=== PATIENT | female | born 1975 | race Caucasian/White ===

== ENCOUNTER 2022-08-24 22:17 | Emergency (ER) | payer MEDICARE, MEDICAID ==
[2022-08-24] MEDS ORDERED: Pepcid 20 MG VIAL IV ONE ×2 (22:33→22:46)
[2022-08-24] MEDS ORDERED: Sodium Chloride 0.9% 1000 ML 1,000 ML IV STA (22:33)
[2022-08-24] MEDS ORDERED: Sodium Chloride 0.9% 1000 ML 1,000 ML ONE (22:47)
[2022-08-24 22:55] LABS: Absolute Neutrophil Ct (ANC) 5.08 x10^3/uL (1.4-6.9); BASOPHIL % 0.9 % (0.0-0.4); Basophil (Absolute #) 0.08 x10^3/uL (0-0.4); Eosinophil % 2.9 % (0.00-5.0); Eosinophil (Absolute #) 0.26 x10^3/uL (0-0.5); Hematocrit 43.3 % (35-47); Hemoglobin 14.6 g/dL (12.0-16.0); IMMATURE GRAN # 0.02 x10^3u/L (0.00-0.03); IMMATURE GRAN % 0.2 % (0.00-0.4); Lymphocytes % 29.1 % (24.0-44.0); Mean Cell Volume 101.4 fL (78-100); Mean Corpuscular Hemoglobin 34.2 pg (26-32); Mean Corpuscular Hgb Concent. 33.7 g/dL (32-36); Mean Platelet Volume 8.8 fL (7.5-11.0); Monocyte (Absolute #) 0.88 x10^3/uL (0.0-1.3); Monocytes % 9.9 % (0.0-12.0); Platelet Count 393 x10^3/uL (150-450); Red Blood Count 4.27 x10^6/uL (4.1-5.4); Red Cell Distribution Width 12.1 % (11.5-14.0); White Blood Count 8.9 x10^3/uL (4.0-10.5)
[2022-08-24 23:13] LABS: Amphetamine,Urine NEGATIVE (NEGATIVE); Barbiturate,Urine NEGATIVE (NEGATIVE); Benzodiazepine,Urine NEGATIVE (NEGATIVE); Cocaine,Urine NEGATIVE (NEGATIVE); Methadone,Urine NEGATIVE (NEGATIVE); Opiate,Urine NEGATIVE (NEGATIVE); PCP,Urine NEGATIVE (NEGATIVE); THC,Urine NEGATIVE (NEGATIVE)
[2022-08-24 23:37] LABS: ALBUMIN 4.1 g/dL (3.5-5.0); ALKALINE PHOSPHATASE 87 U/L (38-126); ANION GAP 11.3 MEQ/L (5-15); BLOOD UREA NITROGEN 11 mg/dL (7-17); CHLORIDE 105 mmol/L (98-107); CK-Creatinine Phosphokinase 246 U/L (30-135); Calcium 8.4 mg/dL (8.4-10.2); Carbon Dioxide 25 mmol/L (22-30); Creatinine 1 0.58 mg/dL (0.52-1.04); EST GLOMERULAR FILTRATION RATE > 60.0 ML/MIN; ETHYL ALCOHOL < 10 mg/dL (0-10); Glucose 106 mg/dL (74-106); MAGNESIUM 1.9 mg/dL (1.6-2.3); NT PRO BNPII < 20.0 pg/mL (<300); Potassium 3.8 mmol/L (3.5-5.1); SGOT/AST 30 U/L (14-36); SGPT/ALT 22 U/L (0-35); SODIUM 137 mmol/L (137-145); Total Protein 7.4 g/dL (6.3-8.2)
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
[2022-08-25 00:06] VITALS: BP 117/51
[2022-08-25 00:15] VITALS: O2SAT 100
[2022-08-25 00:33] VITALS: PULSE 76
--- NOTE | 2022-08-25 08:39 | XRAY ---
Indication: Chest pain. Comparison: None Portable chest demonstrates normal heart, lungs, and bony thorax.
== END 2022-08-25 00:32 | disposition home or self-care (01) ==
LOC: ED 22:17
DX: F41.9 Anxiety disorder, unspecified (principal); R07.89 Other chest pain; I10 Essential (primary) hypertension; Z79.899 Other long term (current) drug therapy; Z72.0 Tobacco use
CPT/HCPCS: 36000; 36415; 71045; 80053; 80307; 82077; 82550; 83735; 83880; 84484; 85025; 93005; 93041; 94760; 96360; 96374; 99284

== ENCOUNTER 2022-08-28 22:54 | Emergency (ER) | payer MEDICARE, MEDICAID ==
[2022-08-29 00:28] LABS: Appearance Clear (Clear); Bacteria None Seen /HPF (None Seen); Bilirubin Negative (Negative); Blood Negative (Negative); Epithelial Cells None Seen /HPF (None Seen); Glucose, Urine Negative (Negative); Hyaline Casts NONE SEEN /LPF (0-2); Ketones Negative (Negative); Leukocyte Esterase Negative (Negative); Nitrite Negative (Negative); Ph 6.5 (4.6-8.0); Protein,Urine Dip Negative (Negative); Specific Gravity <=1.005 (1.005-1.030); Urobilinogen 0.2 mg/dL (0.2); WBC 0-2 /HPF (0-5)
--- NOTE | 2022-08-29 00:28 | ERPHSYRPT ---
- History of Present Illness Time Seen by Provider: 08/28/22 23:30 Source: patient Exam Limitations: no limitations Patient Subjective Stated Complaint: headache and neck ache, htn, stomach ache, jaw pain, chest has a burning feeling Triage Nursing Assessment: pt ambulated into ER without diff, alert and oriented x4, daughter at bedside. Pt c/o headache and neck pain since noon today and her jaw and teeth also hurt. Pt denies any sob or chest pain. Pt has a history of anxiety and has taken 2 ativan today. Pt has indigestion as well. Lungs clear, heart tones reg. Physician History: This is a 46-year-old white female who is a patient of Dr. Pitts and she recently began medication to treat hypertension. She states that the treatment for her hypertension began approximately 1 week ago and they have had to in crease her dose to 2 tablets of Benicar each day. Today, the patient noticed a headache and some pain in her jaw. She has not had a fever. She denies cough. She has no sabra chest pain or shortness of breath but she does have a burning sensation in the mid central chest without radiation. Patient has a history of gastroesophageal reflux disease and significant anxiety issues. Timing/Duration: today Severity: mild Associated Symptoms: headaches, No nausea, No vomiting, No abdominal pain, No shortness of breath, No chest pain Allergies/Adverse Reactions: hydrocodone [From [place]] Allergy (Mild, Verified 08/28/22 23:22) Sulfa (Sulfonamide Antibiotics) Allergy (Verified 08/28/22 23:22) acetaminophen [From Vicodin] Adverse Reaction (Verified 08/28/22 23:22) alprazolam [From Xanax] Adverse Reaction (Verified 08/28/22 23:22) amoxicillin [Amoxicillin] Adverse Reaction (Verified 08/28/22 23:22) dicyclomine Adverse Reaction (Verified 08/28/22 23:22) hydrocodone bitartrate [From Vicodin] Adverse Reaction (Verified 08/28/22 23:22) naproxen Adverse Reaction (Verified 08/28/22 23:22) tramadol Adverse Reaction (Verified 08/28/22 23:22) Home Medications: Lorazepam 0.5 mg [Ativan 0.5 MG] 0.5 mg PO Q4HPRN PRN 08/14/13 [History] Omeprazole 20 MG [Prilosec 20 mg] 20 mg PO DAILY 08/14/13 [History] Olmesartan Medoxomil [Benicar] 10 mg PO DAILY 08/24/22 [History] Hx Tetanus, Diphtheria Vaccination/Date Given: Yes Hx Influenza Vaccination/Date Given: Yes Hx Pneumococcal Vaccination/Date Given: No Travel Risk - International Travel Have you traveled outside of the country in past 3 weeks: No - Coronavirus Screening Are you exhibiting any of the following symptoms?: No Close contact with a COVID-19 positive Pt in past 14-21 Days: No - Vaccine Status Have you recieved a Covid-19 vaccination: Yes 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 - Review of Systems Constitutional: No Symptoms Eyes: No Symptoms Ears, Nose, & Throat: No Symptoms Respiratory: No Symptoms Cardiac: No Symptoms Abdominal/Gastrointestinal: No Symptoms Genitourinary Symptoms: No Symptoms Musculoskeletal: No Symptoms Skin: No Symptoms Neurological: Headache Psychological: No Symptoms Endocrine: No Symptoms Hematologic/Lymphatic: No Symptoms Immunological/Allergic: No Symptoms All Other Systems: Reviewed and Negative - Past Medical History Pertinent Past Medical History: Yes Neurological History: No Pertinent History ENT History: No Pertinent History Cardiac History: Arrhythmia, Hypertension, Other Respiratory History: Bronchitis, Emphysema Endocrine Medical History: Hypoglycemia Musculoskeletal History: No Pertinent History GI Medical History: Ulcer, Other, GERD History: No Pertinent History Psycho-Social History: Depression, Anxiety Female Reproductive Disorders: Other, Cervical Cancer Other Medical History: H. 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 removal) - Social History Smoking Status: Current every day smoker How long have you smoked: 25 yrs Exposure to second hand smoke: Yes Drug Use: none Patient Lives Alone: Yes Significant Family History: no pertinent family hx - Female History Hx Now: No - Nursing Vital Signs Nursing Vital Signs: Initial Vital Signs Temperature 98.1 F 08/28/22 23:05 Pulse Rate 71 08/28/22 23:05 Respiratory Rate 18 08/28/22 23:05 Blood Pressure 154/90 08/28/22 23:05 O2 Sat by Pulse Oximetry 99 08/28/22 23:05 Pain Scale Pain Intensity 2 - Physical Exam General Appearance: no apparent distress, alert, anxiety Eye Exam: PERRL/EOMI, eyes nml inspection Ears, Nose, Throat Exam: normal ENT inspection, moist mucous membranes Neck Exam: normal inspection, non-tender, supple, full range of motion Respiratory Exam: normal breath sounds, lungs clear, airway intact, No chest tenderness, No respiratory distress Cardiovascular Exam: regular rate/rhythm, normal heart sounds, normal peripheral pulses Gastrointestinal/Abdomen Exam: soft, normal bowel sounds, No tenderness Pelvic Exam: not done Rectal Exam: not done Back Exam: normal inspection, normal range of motion, No CVA tenderness Extremity Exam: normal inspection, normal range of motion, pelvis stable Neurologic Exam: alert, oriented x 3, 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, 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, normal mood/affect, nml cerebellar function, nml station & gait, sensation nml Skin Exam: normal color, warm, dry Lymphatic Exam: No adenopathy SpO2 Interpretation: normal SpO2: 96 O2 Delivery: Room Air - Course Nursing assessment & vital signs reviewed: Yes EKG Interpreted by Me: RATE (69), Sinus Rhythm, NORMAL AXIS, NORMAL INTERVALS, NORMAL QRS, NORMAL ST-T, Other (No acute ischemic changes on today's twelve-lead EKG.) Ordered Tests: Active Orders 24 hr Category Date Time Status Geriatric Physician STAT Care 08/28/22 23:58 Active EKG-ER Only STAT Care 08/28/22 23:57 Active IV Insertion STAT Care 08/28/22 23:59 Active Pulse Oximetry (ED) STAT Care 08/28/22 23:57 Active HEAD WITHOUT CONTRAST [CT] Stat Exams 08/28/22 23:58 Taken TROPONIN Q4H Lab 08/29/22 00:40 Completed TROPONIN Q4H Lab 08/29/22 04:30 Ordered TROPONIN Q4H Lab 08/29/22 08:30 Ordered TROPONIN Q4H Lab 08/29/22 12:30 Ordered TROPONIN Q4H Lab 08/29/22 16:30 Ordered TROPONIN Q4H Lab 08/29/22 20:30 Ordered UA W/RFX UR CULTURE Stat Lab 08/28/22 23:58 Completed Lab/Rad Data: Laboratory Result Diagrams 08/28/22 00:10 08/28/22 00:10 Laboratory Results 08/29/22 08/28/22 08/28/22 Range/Units 00:40 23:58 00:10 WBC (4.0-10.5) x10^3/uL RBC (4.1-5.4) x10^6/uL Hgb (12.0-16.0) g/dL Hct (35-47) % MCV (78-100) fL MCH (26-32) pg MCHC (32-36) g/dL RDW (11.5-14.0) % Plt Count (150-450) x10^3/uL MPV (7.5-11.0) fL Gran % (36.0-66.0) % Immature Gran % (Auto) (0.00-0.4) % Nucleat RBC Rel Count (0.00-0.1) % Eos # (Auto) (0-0.5) x10^3/uL Immature Gran # (Auto) (0.00-0.03) x10^3u/L Absolute Lymphs (auto) (1.0-4.6) x10^3/uL Absolute Monos (auto) (0.0-1.3) x10^3/uL Absolute Nucleated RBC (0.00-0.01) x10^3u/L Lymphocytes % (24.0-44.0) % Monocytes % (0.0-12.0) % Eosinophils % (0.00-5.0) % Basophils % (0.0-0.4) % Absolute Granulocytes (1.4-6.9) x10^3/uL Basophils # (0-0.4) x10^3/uL Sodium 137 (137-145) mmol/L Potassium 3.5 (3.5-5.1) mmol/L Chloride 102 (98-107) mmol/L Carbon Dioxide 28 (22-30) mmol/L Anion Gap 11.0 (5-15) MEQ/L BUN 7 (7-17) mg/dL Creatinine 0.56 (0.52-1.04) mg/dL Estimated GFR > 60.0 ML/MIN Glucose 98 (74-106) mg/dL Calcium 9.0 (8.4-10.2) mg/dL Total Bilirubin 0.40 (0.2-1.3) mg/dL AST 27 (14-36) U/L ALT 22 (0-35) U/L Alkaline Phosphatase 64 (38-126) U/L Troponin I < 0.012 (0.000-0.034) ng/mL Serum Total Protein 7.6 (6.3-8.2) g/dL Albumin 4.2 (3.5-5.0) g/dL Urine Color Yellow (Yellow) Urine Appearance Clear (Clear) Urine pH 6.5 (4.6-8.0) Ur Specific [place] <=1.005 (1.005-1.030) Urine Protein Negative (Negative) Urine Glucose (UA) Negative (Negative) mg/dL Urine Ketones Negative (Negative) Urine Blood Negative (Negative) Urine Nitrite Negative (Negative) Urine Bilirubin Negative (Negative) Urine Urobilinogen 0.2 (0.2) mg/dL Ur Leukocyte Esterase Negative (Negative) U Hyaline Cast (Auto) NONE SEEN (0-2) /LPF Urine Microscopic RBC 3-5 (0-5) /HPF Urine Microscopic WBC 0-2 (0-5) /HPF Ur Epithelial Cells None Seen (None Seen) /HPF Urine Bacteria None Seen (None Seen) /HPF Urine Culture Reflexed NO (NO) 08/28/22 Range/Units 00:10 WBC 10.5 (4.0-10.5) x10^3/uL RBC 4.19 (4.1-5.4) x10^6/uL Hgb 14.2 (12.0-16.0) g/dL Hct 42.3 (35-47) % MCV 101.0 H (78-100) fL MCH 33.9 H (26-32) pg MCHC 33.6 (32-36) g/dL RDW 11.7 (11.5-14.0) % Plt Count 363 (150-450) x10^3/uL MPV 8.6 (7.5-11.0) fL Gran % 52.5 (36.0-66.0) % Immature Gran % (Auto) 0.3 (0.00-0.4) % Nucleat RBC Rel Count 0.0 (0.00-0.1) % Eos # (Auto) 0.33 (0-0.5) x10^3/uL Immature Gran # (Auto) 0.03 (0.00-0.03) x10^3u/L Absolute Lymphs (auto) 3.84 (1.0-4.6) x10^3/uL Absolute Monos (auto) 0.70 (0.0-1.3) x10^3/uL Absolute Nucleated RBC 0.00 (0.00-0.01) x10^3u/L Lymphocytes % 36.7 (24.0-44.0) % Monocytes % 6.7 (0.0-12.0) % Eosinophils % 3.2 (0.00-5.0) % Basophils % 0.6 (0.0-0.4) % Absolute Granulocytes 5.49 (1.4-6.9) x10^3/uL Basophils # 0.06 (0-0.4) x10^3/uL Sodium (137-145) mmol/L Potassium (3.5-5.1) mmol/L Chloride (98-107) mmol/L Carbon Dioxide (22-30) mmol/L Anion Gap (5-15) MEQ/L BUN (7-17) mg/dL Creatinine (0.52-1.04) mg/dL Estimated GFR ML/MIN Glucose (74-106) mg/dL Calcium (8.4-10.2) mg/dL Total Bilirubin (0.2-1.3) mg/dL AST (14-36) U/L ALT (0-35) U/L Alkaline Phosphatase (38-126) U/L Troponin I (0.000-0.034) ng/mL Serum Total Protein (6.3-8.2) g/dL Albumin (3.5-5.0) g/dL Urine Color (Yellow) Urine Appearance (Clear) Urine pH (4.6-8.0) Ur Specific [place] (1.005-1.030) Urine Protein (Negative) Urine Glucose (UA) (Negative) mg/dL Urine Ketones (Negative) Urine Blood (Negative) Urine Nitrite (Negative) Urine Bilirubin (Negative) Urine Urobilinogen (0.2) mg/dL Ur Leukocyte Esterase (Negative) U Hyaline Cast (Auto) (0-2) /LPF Urine Microscopic RBC (0-5) /HPF Urine Microscopic WBC (0-5) /HPF Ur Epithelial Cells (None Seen) /HPF Urine Bacteria (None Seen) /HPF Urine Culture Reflexed (NO) - Progress Progress: improved, re-examined Progress Note: 08/29/22 01:24 This patient's medical issue is 1 of moderate complexity. Level of complexity and the work-up performed is based on review of the patient's past medical history, review of the patient's medication list, review of the patient's drug allergy list, history of present illness and physical findings on examination. The work-up in this patient includes a CT scan of the head without contrast, twelve-lead EKG, urinalysis, troponin level, CBC and CMP levels. I reviewed the results of the work-up. There are no acute, emergent findings on the laboratory data. The CT scan of the head without contrast results are pending. We will review the radiologist impression once this study returns. If this study is normal, we will discharge the patient to home with instructions to continue the medication as prescribed and to call her primary care provider later this morning on 08/29/2022. 08/29/22 01:46 CT scan of the head without contrast is unremarkable there is no acute intracranial abnormality. Counseled pt/family regarding: lab results, diagnosis, need for follow-up, rad results Medical Desision Making - Diagnostic Testing Diagnostic test were ordered, analyzed, and reviewed by me: Yes Radiological Interpretation: Reviewed by me, Teleradiologist Report - Risk of complications Low Risk: Low risk of morbidity from additional dx testing or treatment - Departure Departure Disposition: Home Clinical Impression: Hypertension, Headache Condition: Stable Critical Care Time: No Referrals: CLEOPATRA KING MD [Primary Care Provider] - Follow up/PCP as directed Additional Instructions: Continue medication as prescribed. Call your prescribing provider later this morning, 08/29/2022 to make arrangements for a follow-up appointment and further instruction/management.
[2022-08-29 00:51] LABS: ADD URINE CULTURE? NO (NO)
[2022-08-29 00:51] LABS: Absolute Neutrophil Ct (ANC) 5.49 x10^3/uL (1.4-6.9); BASOPHIL % 0.6 % (0.0-0.4); Basophil (Absolute #) 0.06 x10^3/uL (0-0.4); Eosinophil % 3.2 % (0.00-5.0); Eosinophil (Absolute #) 0.33 x10^3/uL (0-0.5); Hematocrit 42.3 % (35-47); Hemoglobin 14.2 g/dL (12.0-16.0); IMMATURE GRAN # 0.03 x10^3u/L (0.00-0.03); IMMATURE GRAN % 0.3 % (0.00-0.4); Lymphocyte (Absolute #) 3.84 x10^3/uL (1.0-4.6); Lymphocytes % 36.7 % (24.0-44.0); Mean Corpuscular Hemoglobin 33.9 pg (26-32); Mean Corpuscular Hgb Concent. 33.6 g/dL (32-36); Mean Platelet Volume 8.6 fL (7.5-11.0); Monocytes % 6.7 % (0.0-12.0); Neutrophil % 52.5 % (36.0-66.0); Platelet Count 363 x10^3/uL (150-450); Red Blood Count 4.19 x10^6/uL (4.1-5.4); Red Cell Distribution Width 11.7 % (11.5-14.0); White Blood Count 10.5 x10^3/uL (4.0-10.5)
[2022-08-29 01:06] LABS: ALBUMIN 4.2 g/dL (3.5-5.0); ALKALINE PHOSPHATASE 64 U/L (38-126); BLOOD UREA NITROGEN 7 mg/dL (7-17); CHLORIDE 102 mmol/L (98-107); Carbon Dioxide 28 mmol/L (22-30); Creatinine 1 0.56 mg/dL (0.52-1.04); EST GLOMERULAR FILTRATION RATE > 60.0 ML/MIN; Glucose 98 mg/dL (74-106); Potassium 3.5 mmol/L (3.5-5.1); SGOT/AST 27 U/L (14-36); SGPT/ALT 22 U/L (0-35); SODIUM 137 mmol/L (137-145); Total Protein 7.6 g/dL (6.3-8.2)
[2022-08-29 01:56] VITALS: BP 120/80; PULSE 65; O2SAT 97
--- NOTE | 2022-08-29 08:33 | XRAY ---
CLINICAL HISTORY:Hypertension; headache; COMPARISON:01/26/2015; TECHNIQUES:Axial non-contrast CT scan of the brain was performed from the skull base to the high parietal region; FINDINGS: The visualized brain parenchyma shows terry-white matter differentiation. No midline shift. No intracerebral or extra axial hematoma. Normal size and configuration of the cerebral ventricles. Normal CT appearance of the posterior fossa structures. The osseous structures in the skull base are unremarkable. No definite calvarium fractures. Scanned paranasal sinuses and mastoid air cells are clear. IMPRESSION: Unremarkable non-enhanced CT study for the brain. No interval changes compared to prior study. Electronically Signed by: Sammi Veliz MD. 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
== END 2022-08-29 01:57 | disposition home or self-care (01) ==
LOC: ED 22:54
DX: I10 Essential (primary) hypertension (principal); R51.9 Headache, unspecified; R07.9 Chest pain, unspecified; Z79.899 Other long term (current) drug therapy; Z72.0 Tobacco use
CPT/HCPCS: 36000; 36415; 70450; 80053; 81001; 84484; 85025; 93005; 93041; 94760; 99284

== ENCOUNTER 2025-01-19 15:43 | Emergency (ER) | payer MEDICARE ==
[2025-01-19 16:59] VITALS: RESP 18; TEMP 97.2
--- NOTE | 2025-01-19 17:13 | ERPHSYRPT ---
- History of Present Illness Time Seen by Provider: 01/19/25 16:52 Source: patient Exam Limitations: no limitations Patient Subjective Stated Complaint: Pt states "I had a sacral injection 01/15/2025 and now I have a lump in my lower back that was not there and my legs are heavy and my head hurts and I contacted the Dr. that did the injection and they said to contact my family Dr and Dr. Pitts wanted me to come to the er to get an x ray and labs to make sure I do not have an infection." Triage Nursing Assessment: Pt presented alert and oriented X 3, skin pwd. Pt ambulates with a cane, pt able to stand on her own and move. Pt in no apparent distress at this time. Physician History: 49 year-old female presents to the emergency room patient reports she had sacral injections patient was recommended that she come to the emergency room to evaluate for an infection patient reports she is having pain at the injection site denies any pus or drainage denies any redness denies any fevers or chills patient is now in ED for further eval patient reports he is on Lyrica for pain control Timing/Duration: today Method of Injury: other (injection site) Quality: aching Back Pain Location: lumbar spine, coccyx Severity of Pain-Max: mild Severity of Pain-Current: mild Modifying Factors: Improves With: nothing Associated Symptoms: muscle spasms, No fever, No chills, No sweating, No nausea, No light-headedness, No dizziness Allergies/Adverse Reactions: hydrocodone [From [place]] Allergy (Mild, Verified 08/28/22 23:22) Sulfa (Sulfonamide Antibiotics) Allergy (Verified 08/28/22 23:22) acetaminophen [From Vicodin] Adverse Reaction (Verified 08/28/22 23:22) alprazolam [From Xanax] Adverse Reaction (Verified 08/28/22 23:22) amoxicillin [Amoxicillin] Adverse Reaction (Verified 08/28/22 23:22) dicyclomine Adverse Reaction (Verified 08/28/22 23:22) hydrocodone bitartrate [From Vicodin] Adverse Reaction (Verified 08/28/22 23:22) naproxen Adverse Reaction (Verified 08/28/22 23:22) tramadol Adverse Reaction (Verified 08/28/22 23:22) Home Medications: Lorazepam 0.5 mg [Ativan 0.5 MG] 0.5 mg PO Q4HPRN PRN 08/14/13 [History] Omeprazole 20 MG [Prilosec 20 mg] 20 mg PO DAILY 08/14/13 [History] Olmesartan Medoxomil [Benicar] 10 mg PO DAILY 08/24/22 [History] LORazepam [Ativan] 0.5 mg PO DAILY 01/19/25 [History] Pregabalin 25 mg [Lyrica 25 MG] 25 mg PO DAILY 01/19/25 [History] Ubrogepant [Ubrelvy] 100 mg PO DAILY 01/19/25 [History] Hx Tetanus, Diphtheria Vaccination/Date Given: Yes Hx Influenza Vaccination/Date Given: Yes Hx Pneumococcal Vaccination/Date Given: No Immunizations Up to Date: No Travel Risk - International Travel Have you traveled outside of the country in past 3 weeks: No - Emerging Infectious Disease Are you exhibiting symptoms associated with any current EIDs: No - Review of Systems Constitutional: No Fever, No Chills Eyes: No Symptoms Ears, Nose, & Throat: No Symptoms Respiratory: No Cough, No Dyspnea Cardiac: No Chest Pain, No Edema, No Syncope Abdominal/Gastrointestinal: No Abdominal Pain, No Nausea, No Vomiting, No Diarrhea Genitourinary Symptoms: No Dysuria Musculoskeletal: Back Pain, No Neck Pain Skin: No Rash Neurological: No Dizziness, No Focal Weakness, No Sensory Changes Psychological: No Symptoms Endocrine: No Symptoms All Other Systems: Reviewed and Negative - Past Medical History Pertinent Past Medical History: Yes Neurological History: No Pertinent History ENT History: No Pertinent History Cardiac History: Arrhythmia, Hypertension, Other Respiratory History: Bronchitis, Emphysema Endocrine Medical History: Hypoglycemia Musculoskeletal History: No Pertinent History GI Medical History: Ulcer, Other, GERD History: No Pertinent History Psycho-Social History: Anxiety, Depression, Other Female Reproductive Disorders: Other, Cervical Cancer Other Medical History: H. PYLORI - OVARIAN CYSTS, SVT, chairi malformation. PTSD. bulging disc. psiatic right side - Past Surgical History Past Surgical History: Yes Neuro Surgical History: No Pertinent History Cardiac: No Pertinent History Respiratory: No Pertinent History Gastrointestinal: No Pertinent History Genitourinary: No Pertinent History Musculoskeletal: No Pertinent History Female Surgical History: Hysterectomy, Other Other Surgical History: LEEP, endometrial ablation, dysplasia in breast with a wire (tissue removal) Significant Family History: no pertinent family hx - Female History Hx Last Menstrual Period: HYST Hx Now: No - Social History Smoking Status: Current every day smoker How long have you smoked: 25 yrs Exposure to second hand smoke: Yes Drug Use: none - Social Determinants of Health Will the patient participate in the screening: Declined to provide - Nursing Vital Signs Nursing Vital Signs: Initial Vital Signs Temperature 97.2 F 01/19/25 16:52 Pulse Rate 67 01/19/25 16:52 Respiratory Rate 18 01/19/25 16:52 Blood Pressure 117/71 01/19/25 16:52 O2 Sat by Pulse Oximetry 99 01/19/25 16:52 Pain Scale Pain Intensity [Lower Back] 8 Pain Intensity 0 - Physical Exam General Appearance: no apparent distress, alert Eye Exam: PERRL/EOMI, eyes nml inspection Neck Exam: normal inspection, non-tender, supple, full range of motion, No meningismus, No midline tenderness Respiratory Exam: normal breath sounds, lungs clear, No respiratory distress Cardiovascular Exam: regular rate/rhythm, normal heart sounds Gastrointestinal Exam: soft, No tenderness, No mass Back Exam: muscle spasm Extremity Exam: normal inspection, normal range of motion, No calf tenderness, No pedal edema Neurologic Exam: alert, oriented x 3, 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, 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, normal mood/affect, nml station & gait, sensation nml, No motor deficits Skin Exam: normal color, warm, dry, No rash SpO2: 99 Ordered Tests: Active Orders 24 hr Category Date Time Status LUMBAR SPINE W/O [CT] Stat Exams 01/19/25 17:09 Taken THORACIC SPINE W/O CONTRAST [CT] Stat Exams 01/19/25 17:09 Taken CBC W DIFF Stat Lab 01/19/25 17:55 Completed CMP Stat Lab 01/19/25 17:55 Completed Medication Summary Discontinued Medications Generic Name Dose Route Start Last Admin Trade Name Armando PRN Reason Stop Dose Admin Azithromycin 500 mg 01/19/25 18:55 Azithromycin 250 Mg Tablet PO 01/19/25 18:56 STAT ONE Cyclobenzaprine HCl 10 mg 01/19/25 17:09 01/19/25 17:40 Cyclobenzaprine Hcl 10 Mg Tablet PO 01/19/25 17:10 10 mg STAT ONE Administration Cyclobenzaprine HCl Confirm 01/19/25 17:23 Cyclobenzaprine Hcl 10 Mg Tablet Administered 01/19/25 17:24 Dose 10 mg .ROUTE .STK-MED ONE Lidocaine 1 patch 01/19/25 17:09 01/19/25 17:40 Lidocaine Hcl 1 Patch Patch TOP 01/19/25 17:10 1 patch ONCE ONE Administration Lab/Rad Data: Laboratory Result Diagrams 01/19/25 17:55 01/19/25 17:55 Laboratory Results 01/19/25 01/19/25 Range/Units 17:55 17:55 WBC 12.8 H (3.98-10.04) x10^3/uL RBC 4.08 (3.93-5.22) x10^6/uL Hgb 14.0 (11.2-15.7) g/dL Hct 40.6 (34.1-44.9) % MCV 99.5 H (79.4-94.8) fL MCH 34.3 H (25.6-32.2) pg MCHC 34.5 (32.2-35.5) g/dL RDW 11.8 (11.7-14.4) % Plt Count 392 H (182-369) x10^3/uL MPV 8.5 L (9.4-12.3) fL Gran % 63.7 (34.0-71.1) % Immature Gran % (Auto) 0.4 (0.001-0.429) % Nucleat RBC Rel Count 0.0 (0.00-0.2) % Eos # (Auto) 0.14 (0.04-0.36) x10^3/uL Immature Gran # (Auto) 0.05 H (0.001-0.031) x10^3u/L Absolute Lymphs (auto) 3.57 (1.18-3.74) x10^3/uL Absolute Monos (auto) 0.82 (0.24-0.86) x10^3/uL Absolute Nucleated RBC 0.00 (0.00-0.012) x10^3u/L Lymphocytes % 27.8 (19.3-51.7) % Monocytes % 6.4 (4.7-12.5) % Eosinophils % 1.1 (0.7-5.8) % Basophils % 0.6 (0.1-1.2) % Absolute Granulocytes 8.16 H (1.56-6.13) x10^3/uL Basophils # 0.08 (0.01-0.08) x10^3/uL Sodium 137 (135-145) mmol/L Potassium 4.0 (3.5-5.1) mmol/L Chloride 107 (98-107) mmol/L Carbon Dioxide 21 L (22-30) mmol/L Anion Gap 13.5 (5-15) MEQ/L BUN 14 (7-17) mg/dL Creatinine 0.64 (0.52-1.04) mg/dL Estimated GFR 108.9 ML/MIN Glucose 103 (74-106) mg/dL Calcium 9.5 (8.4-10.2) mg/dL Total Bilirubin 0.40 (0.2-1.3) mg/dL AST 22 (14-36) U/L ALT 14 (0-35) U/L Alkaline Phosphatase 69 (38-126) U/L Serum Total Protein 7.6 (6.3-8.2) g/dL Albumin 4.4 (3.5-5.0) g/dL - Progress Progress Note: 01/19/25 17:12 Patient will be given Flexeril lidocaine patch pending CT scans patient is afebrile at this time no obvious source of infection noted on examination patient will benefit from CBC & CMP 01/19/25 18:45 01/19/25 18:56 Patient has a 1.2 cm patchy ground glass airspace opacity in the right lower lobe T and L-spine otherwise normal 01/19/25 18:58 - Departure Departure Disposition: Home Clinical Impression: Back pain Qualifiers: Back pain location: back pain in unspecified location Chronicity: unspecified B ack pain laterality: unspecified Qualified Code(s): M54.9 - Dorsalgia, unspecified PNA (pneumonia) Qualifiers: Pneumonia type: due to unspecified organism Condition: Stable Critical Care Time: No Referrals: CLEOPATRA KING MD [Primary Care Provider, [facility]] - Follow up/PCP as directed Instructions: Low back pain in adults, Pneumonia, Adult (DC) Prescriptions: Cyclobenzaprine HCl 5 mg PO HS PRN PRN #10 tablet PRN Reason: Muscle Spasms Azithromycin 250 mg [Zithromax 250 MG TABLET] 250 mg PO ZPACK #6 tablet
[2025-01-19] MEDS ORDERED: Cyclobenzaprine 10 MG ONE (17:23)
[2025-01-19] MEDS: Cyclobenzaprine 10 MG PO ONE (17:40)
[2025-01-19] MEDS: Lidoderm Patch 5% TOP ONE (17:40)
[2025-01-19 18:00] LABS: BASOPHIL % 0.6 % (0.1-1.2); Basophil (Absolute #) 0.08 x10^3/uL (0.01-0.08); Eosinophil (Absolute #) 0.14 x10^3/uL (0.04-0.36); Hematocrit 40.6 % (34.1-44.9); Hemoglobin 14.0 g/dL (11.2-15.7); IMMATURE GRAN # 0.05 x10^3u/L (0.001-0.031); IMMATURE GRAN % 0.4 % (0.001-0.429); Lymphocyte (Absolute #) 3.57 x10^3/uL (1.18-3.74); Mean Corpuscular Hemoglobin 34.3 pg (25.6-32.2); Mean Corpuscular Hgb Concent. 34.5 g/dL (32.2-35.5); Monocyte (Absolute #) 0.82 x10^3/uL (0.24-0.86); NUCLEATED RBC # 0.00 x10^3u/L (0.00-0.012); NUCLEATED RBC % 0.0 % (0.00-0.2); Platelet Count 392 x10^3/uL (182-369); Red Blood Count 4.08 x10^6/uL (3.93-5.22); White Blood Count 12.8 x10^3/uL (3.98-10.04)
[2025-01-19 18:13] LABS: Calcium 9.5 mg/dL (8.4-10.2); Carbon Dioxide 21.0 mmol/L (22-30); Creatinine 1 0.64 mg/dL (0.52-1.04); EST GLOMERULAR FILTRATION RATE 108.9 ML/MIN; Glucose 103.0 mg/dL (74-106); Potassium 4.0 mmol/L (3.5-5.1); SGOT/AST 22.0 U/L (14-36); SGPT/ALT 14.0 U/L (0-35); Total Protein 7.6 g/dL (6.3-8.2)
[2025-01-19 19:16] VITALS: BP 111/80; PULSE 56; O2SAT 96
[2025-01-19] MEDS ORDERED: Zithromax 250 MG TABLET ONE (19:16)
[2025-01-19] MEDS: Zithromax 250 MG TABLET PO ONE (19:17)
--- NOTE | 2025-01-20 08:36 | XRAY ---
Indication: Pain. Multiple contiguous axial images obtained through the thoracic spine without contrast. Sagittal and coronal reformatted images obtained. Comparison: January 25, 2015 Lungs demonstrates new 1.2 cm patchy right lower lobe ground-glass airspace disease. Otherwise continued normal bones, articulation, and noncontrasted soft tissues. CT lumbar spine reported separately. Impression: New small right lower lobe patchy ground-glass airspace disease. Otherwise continued normal CT thoracic spine.
--- NOTE | 2025-01-20 08:38 | XRAY ---
Indication: Pain. Multiple contiguous axial images obtained through the lumbar spine without contrast. Sagittal and coronal reformatted images obtained. Comparison: January 25, 2015 Continued normal bones, articulation, and noncontrasted soft tissues. CT thoracic spine reported separately Impression: Continued normal CT lumbar spine.
== END 2025-01-19 19:30 | disposition home or self-care (01) ==
LOC: ED 15:43
DX: M54.9 Dorsalgia, unspecified (principal); J18.9 Pneumonia, unspecified organism; I10 Essential (primary) hypertension; Z79.899 Other long term (current) drug therapy; Z72.0 Tobacco use